=== PATIENT | female | born 1970 | race Caucasian/White ===

== ENCOUNTER 2016-12-19 02:25 | Outpatient (CLI) ==
[2015-06-21 12:39] VITALS: BMI 34.7
== END 2016-12-19 02:26 ==
LOC: AMBL 02:25
PROVIDERS: ATTEND Emergency Medicine
DX: M54.2 Cervicalgia (principal)

== ENCOUNTER 2017-04-28 10:32 | Outpatient (CLI) ==
[2015-06-21 12:39] VITALS: BMI 34.7
== END 2017-04-28 10:33 | disposition home or self-care (01) ==
LOC: AMBL 10:32
PROVIDERS: ATTEND Internal Medicine
DX: R11.10 Vomiting, unspecified (principal); R53.1 Weakness; R00.0 Tachycardia, unspecified

== ENCOUNTER 2017-07-10 13:57 | Outpatient (CLI) ==
[2015-06-21 12:39] VITALS: BMI 34.7
--- NOTE | 2017-07-10 14:34 | DI ---
EXAM: Right shoulder three view HISTORY: Right shoulder impingement COMPARISON: 01/24/2015 FINDINGS: The bones are normal. The glenohumeral joint and acromioclavicular joint are normal. No fo tramaine soft tissue abnormality. Visualized portion of the chest is normal. IMPERSSION: Normal examination.
--- NOTE | 2017-07-10 14:36 | DI ---
Exam: Six x-rays of the cervical spine. Comparison: Spondylolisthesis and radiculopathy Reason for exam: Neck pain. FINDINGS: No acute fracture or malalignment. The vertebral body and intervertebral body disc space heights are relatively well maintained. There is a normal appearing cervical lordotic curve. Mild d egenerative disease is seen with intervertebral body disc space height narrowing. The prevertebral soft tissues are within normal limits. The dens is intact on the open-mouth odontoid view. Impression: No acute fracture or listhesis in the cervical spine with mild degenerative disease. If clinical con cern exists for radiculopathy or myelopathy, MRI may be performed.
== END 2017-07-10 13:58 | disposition home or self-care (01) ==
LOC: RAD 13:57
PROVIDERS: ATTEND Pain Medicine Interventional Pain Medicine
DX: M75.41 Impingement syndrome of right shoulder (principal); M47.812 Spondylosis without myelopathy or radiculopathy, cervical region

== ENCOUNTER 2017-09-03 10:04 | Outpatient (CLI) ==
[2015-06-21 12:39] VITALS: BMI 34.7
== END 2017-09-03 10:05 | disposition home or self-care (01) ==
LOC: LAB 10:04
PROVIDERS: ATTEND Physician Assistant
DX: K21.9 Gastro-esophageal reflux disease without esophagitis (principal); R73.9 Hyperglycemia, unspecified; Z68.39 Body mass index [BMI] 39.0-39.9, adult
CPT/HCPCS: 36415; 80053; 80061; 85025

== ENCOUNTER 2018-02-11 10:09 | Outpatient (CLI) ==
[2015-06-21 12:39] VITALS: BMI 34.7
--- NOTE | 2018-02-12 10:30 | MRI ---
EXAM: Cervical spine MRI without contrast. HISTORY: Cervical facet joint arthropathy. COMPARISON: Cervical spine radiographs 07/10/2017. TECHNIQUE: Multiplanar, multisequence MR images were acquired cervical spine without contrast. FINDINGS: The craniocervical junction is normal and the cervical cord has normal signal intensity. T here is minor mid cervical dextroscoliosis centered at C4-5 and there is 1 mm retrolisthesis of C4 on C5 and C5 on C6. The cervical vertebra are normal in height and intrinsic bone marrow signal. Yrn r ventral spondylosis is present at C6-7. There are no paravertebral masses. The thyroid gland is m ildly enlarged with a nodular configuration . The isthmus measures 1.9 cm in diameter. Visualized lung apices are clear. C2-3: There is a small posterior disc bulge without central canal stenosis. Neural foramina are pat ent. C3-4: There is a minor posterior disc osteophyte complex without central canal stenosis. Minor left uncovertebral hypertrophy and facet arthropathy is present. There is mild left foraminal stenosis. C4-5: There is a minor dorsal spondylotic ridge that is asymmetric to the right. There is no centra l canal stenosis or foraminal stenosis. C5-6: There is a mild posterior disc osteophyte complex, ligamentum flavum hypertrophy and minor rig ht uncovertebral hypertrophy. There is mild to moderate right neural foraminal stenosis. There is n o central canal stenosis. C6-7: There is a mild diffuse disc bulge and right greater than left uncovertebral hypertrophy. This causes mild right and possibly minor left foraminal stenosis. There is no central canal stenosis. C7-T1: There is a minor posterior disc bulge that is considered physiologic. There is no central ca nal stenosis or foraminal stenosis. IMPRESSION: 1. Minor cervical degenerative spondylosis without central canal stenosis or disc herniations. 2. Mild to moderate right C5-6 neural foraminal stenosis. 3. Mildly enlarged nodular thyroid gland suggestive of a goiter. Thyroid ultrasound is advised to b rosita define the anatomy.
== END 2018-02-11 10:10 | disposition home or self-care (01) ==
LOC: RAD 10:09
PROVIDERS: ATTEND Pain Medicine Interventional Pain Medicine
DX: M47.812 Spondylosis without myelopathy or radiculopathy, cervical region (principal); E78.5 Hyperlipidemia, unspecified
CPT/HCPCS: 36415; 80053

== ENCOUNTER 2018-04-01 09:59 | Outpatient (CLI) ==
[2015-06-21 12:39] VITALS: BMI 34.7
== END 2018-04-01 10:00 | disposition home or self-care (01) ==
LOC: LAB 09:59
PROVIDERS: ATTEND Nurse Practitioner
DX: K59.00 Constipation, unspecified (principal); K92.1 Melena; R19.5 Other fecal abnormalities; R39.11 Hesitancy of micturition
CPT/HCPCS: 36415; 80053; 82272; 85025

== ENCOUNTER 2018-04-03 13:51 | Outpatient (CLI) ==
[2015-06-21 12:39] VITALS: BMI 34.7
== END 2018-04-03 13:52 | disposition home or self-care (01) ==
LOC: LAB 13:51
PROVIDERS: ATTEND Nurse Practitioner
DX: K59.00 Constipation, unspecified (principal); K92.1 Melena; R19.5 Other fecal abnormalities; R39.11 Hesitancy of micturition